=== PATIENT | female | born 1995 | race Caucasian/White ===

== ENCOUNTER → 2023-06-06 | Outpatient (CLI) | payer OTHER, SELFPAY ==
[2023-06-06 11:23] LABS: Absolute Lymphocyte Count 2.46 X10^3/uL (0.83-4.51); Absolute Neutrophil Count 6.6 X10^3/uL (2.0-7.7); Basophil# 0.06 X10^3/uL; Basophil% 0.6 % (0-1); Eosinophil# 0.09 X10^3/uL; Eosinophils% 0.9 % (0-5); Hematocrit 38.1 % (37-47); Hemoglobin 12.4 g/dL (12.0-15.0); Lymphocyte # 2.46 X10^3/ul (0.83-4.51); Lymphocyte % 24.6 % (19-41); Mean Corp Hgb Conc 32.5 g/dL (32-36); Mean Corpuscular Hgb 29.2 pg (27.0-32.0); Mean Corpuscular Volume 89.6 fL (81-99); Mean Platelet Vol. 10.5 fl (6.2-12.0); Monocyte# 0.71 X10^3/uL; Monocyte% 7.1 % (0-10); NRBC Flagged by Analyzer 0 % (0-5); Neutrophil # 6.63 X10^3/uL (2.7-7.7); Neutrophil % 66.5 % (47-70); Platelet Count 300 K/mm3 (150-450); RBC Distribution Width CV 11.9 % (11.6-14.6); RBC Distribution Width SD 38.9 fl (35.1-43.9); Red Blood Count 4.25 M/mm3 (4.2-5.4)
[2023-06-06 11:45] LABS: ALB/GLOB Ratio 0.8 RATIO (0.9-2.4); AST(SGOT) 16 U/L (15-37); Alanine Aminotransfer ALT/SGPT 39 U/L (13-56); Albumin, Serum 3.6 g/dL (3.2-5.0); Alkaline Phosphatase 62 U/L (45-117); Anion Gap 3 (5-15); BUN 8 mg/dL (7-18); BUN/Creat Ratio 12.3 RATIO (10-20); Calcium,Total 9.5 mg/dL (8.5-10.1); Chloride 108 mmol/L (98-107); Creatinine, Serum 0.65 mg/dL (0.55-1.02); EST Glomerular Filtration Rate 114 mL/min (>60); Est Glom Filt Rate - Afr Amer 138 mL/min (>60); Globulin 4.7 g/dL (2.2-4.2); Glucose 83 mg/dL (74-106); Protein, Total 8.3 g/dL (6.4-8.2); Sodium Level 134 mmol/L (136-145)
[2023-06-06 11:51] LABS: Hemoglobin A1c 4.9 % (3.8-5.6)
[2023-06-06 12:42] LABS: HIV - WCH Non-Reactive (Nonreactive); Hepatitis B Surface Antigen Non-Reactive (Nonreactive); Hepatitis C Antibody Non-Reactive (Nonreactive); Rubella IgG Reactive (Nonreactive); Syphilis Antibodies Non-reactive
[2023-06-06 12:45] LABS: Protein, Urine (Random) 18.5 mg/dL (<11.9); Protein:Creat Ratio 66 mg/g CRE (0-200)
[2023-06-08 07:08] LABS: Chlamydia By Nucleic Acid AMP Negative (Negative); Gonococcus By Nucleic Acid AMP Negative (Negative)
== END | disposition home or self-care (01) ==
PROVIDERS: Referring Provider Obstetrics & Gynecology; Visit Provider Obstetrics & Gynecology
DX: Z34.90 Encounter for supervision of normal pregnancy, unspecified, unspecified trimester (principal)
CPT/HCPCS: 36415; 80053; 82570; 83036; 84156; 85025; 86703; 86762; 86780; 86803; 86850; 86900; 86901; 87086; 87340; 87491; 87591

== ENCOUNTER → 2023-06-20 | Outpatient (CLI) | payer OTHER, SELFPAY | END | disposition home or self-care (01) | PROVIDERS: Referring Provider Obstetrics & Gynecology; Visit Provider Obstetrics & Gynecology | DX: R35.0 Frequency of micturition (principal); R30.0 Dysuria | CPT/HCPCS: 87077; 87086; 87088; 87186 ==

== ENCOUNTER → 2023-07-19 | Outpatient (CLI) | payer OTHER, SELFPAY ==
--- NOTE | 2023-07-19 13:00 | US_ITS ---
STUDY: SECOND AND THIRD TRIMESTER OBSTETRICAL ULTRASOUND - LIMITED REASON FOR EXAM: Female, 28 years old pelvic pain-right sided, evaluate ovaries. LMP: 04/11/2023. PRIOR ULTRASOUND: No relevant prior comparison study available TECHNIQUE: Transabdominal and Transvaginal TECHNICAL QUALITY: Adequate. FINDINGS: There is a single intrauterine fetus. The fetus is in a cephalic presentation. There is demonstrated cardiac activity with a heart rate of 53 bpm. There is a normal amniotic fluid volume. The amniotic fluid index (ELLE) is not measured. The placenta is posterior in location and is not low lying. There are Grade 0 placental changes. The cervix measures 4.5 cm cm in length. The right ovary measures 3.4 x 2.4 x 2.4 cm flow was seen in the right ovary. There is a 2.3 cm cyst. The left ovary measures 2.1 x 1.8 x 1 cm and appears unremarkable. IMPRESSION: 1. Single live intrauterine fetus in cephalic presentation. 2. Right ovarian cyst. Electronically Signed: Chase Ladd MD at 13:20 EST , STUDY: SECOND AND THIRD TRIMESTER OBSTETRICAL ULTRASOUND - LIMITED REASON FOR EXAM: Female, 28 years old pelvic pain-right sided, evaluate ovaries. LMP: 04/11/2023. PRIOR ULTRASOUND: No relevant prior comparison study available TECHNIQUE: Transabdominal and Transvaginal TECHNICAL QUALITY: Adequate. FINDINGS: There is a single intrauterine fetus. The fetus is in a cephalic presentation. There is demonstrated cardiac activity with a heart rate of 53 bpm. There is a normal amniotic fluid volume. The amniotic fluid index (ELLE) is not measured. The placenta is posterior in location and is not low lying. There are Grade 0 placental changes. The cervix measures 4.5 cm cm in length. The right ovary measures 3.4 x 2.4 x 2.4 cm flow was seen in the right ovary. There is a 2.3 cm cyst. The left ovary measures 2.1 x 1.8 x 1 cm and appears unremarkable. US/OB Limited (No Biometrics) IMPRESSION: 1. Single live intrauterine fetus in cephalic presentation. 2. Right ovarian cyst. . Electronically Signed: Chase Ladd MD at 13:21 EST ,
== END | disposition home or self-care (01) ==
LOC: OPUS 12:58
PROVIDERS: Referring Provider Obstetrics & Gynecology; Visit Provider Obstetrics & Gynecology
DX: O99.891 Other specified diseases and conditions complicating pregnancy (principal); R10.2 Pelvic and perineal pain; Z3A.12 12 weeks gestation of pregnancy
CPT/HCPCS: 76815; 76817

== ENCOUNTER → 2023-07-23 | Outpatient (CLI) | payer OTHER, SELFPAY | END | disposition home or self-care (01) | LOC: LABSPEC 11:02 | PROVIDERS: Referring Provider Otolaryngology Otolaryngology/Facial Plastic Surgery; Visit Provider Otolaryngology Otolaryngology/Facial Plastic Surgery | DX: J32.8 Other chronic sinusitis (principal) | CPT/HCPCS: 87070; 87077; 87205 ==

== ENCOUNTER → 2023-10-20 | Outpatient (CLI) | payer OTHER, SELFPAY ==
--- NOTE | 2023-10-20 09:12 | EKG12_ITS ---
Test Reason : TACHY Blood Pressure : / mmHG Vent. Rate : 107 BPM Atrial Rate : 107 BPM P-R Int : 130 ms QRS Dur : 076 ms QT Int : 336 ms P-R-T Axes : 050 052 022 degrees QTc Int : 448 ms Sinus tachycardia Otherwise normal ECG Confirmed by Surendra Ortiz ([id number]), book editor JABIER LEONARD ([id number]) on 10/21/2023 2:00:14 PM Referred By: Carolyn Agrawal Confirmed By:Surendra Ortiz
--- OUTSIDE RECORDS SUMMARY | 2023-10-20 11:01 | XMS RPT_ITS | CCD ---
Author Name Unknown Address [facility] [address] [place] [address] Organization [facility] Care Team Providers Care Blending Operator Name Role Phone BRODY JONAS Attending Unavailable NINFA DICKERSON Primary Care Unavailab NINFA Kenny Referring Unavailab BRODY Ventura Referring Unavailable NINFA DICKERSON Primary Care Unavailab PETE Ann Attending Unavailable NINFA DICKERSON Primary Care Unavailab NINFA Kenny Referring Unavailab JAMI Zaldivar Attending Unavailable Results Test Name Value Interpretation Reference Range Facil ity Encounters Encounter Date Encounter Type Care Provider Facility Start: 09-06-2023 End: 09-06-2023 ambulatory NINFA [facility] Start: 09-06-2023 End: 09-06-2023 ambulatory BRODY JONAS [facility] Start: 08-25-2023 End: 08-25-2023 ambulatory BRODY Wei [facility] Payers Date Payer Category Payer Unknown [id number] [id number] 1994 Unknown [id number] [id number] 1994 Unknown [id number] [id number]. [id number] Private Health Insurance [id number] Clinical Note 09-06-2023 Note Date & Type Note Facility 09-06-2023 Note China Conteh is a new patient who's primary care provider is Ninfa Dickerson, here for evaluation of heart. Chief Complaint Patient presents with ECHO echo History of Presenting Problem HPI Thank you for consulting us regarding China Conteh. She is referred to the cardiology clinic at [facility] for evaluation of the heart. I saw this patient in the echocardiogram clinic on 09/06/2023. Patient was referred to the echocardiographic clinic for a echocardiogram since there was a question/suspicion of vascular ring/Double aortic arch. Cardiac ROS Review of Systems See the full note Past Medical History Past Medical History: Diagnosis Date Essential (primary) hypertension Treatment Center Plan of Care Hypertension Obesity Past Surgical History: Procedure Laterality Date SECTION, LOW TRANSVERSE TONSILLECTOMY Medications: Outpatient Encounter Medications as of 09/06/2023 Medication Sig Dispense Refill losartan (COZAAR) 12.5 mg TABS Take by mouth aspirin EC (ECOTRIN LOW STRENGTH) 81 MG EC tablet Take by mouth daily famotidine (PEPCID) 40 MG/4ML injection Infuse intravenously multivitamin (TRINATAL RX) tablet Take by mouth daily No facility-administered encounter medications on file as of 09/06/2023. Allergies: No Known Allergies Family Medical History: Family History Problem Relation Age of Onset Breast Cancer Paternal Grandmother Social History: Social History Socioeconomic History Marital status: Spouse name: None Number of children: None Years of education: None Highest education level: None Tobacco Use Smoking status: Never Smokeless tobacco: Never Substance and Sexual Activity Alcohol use: Never Drug use: Never Physical Exam: Vitals: 09/06/23 0915 BP: 139/72 Growth %ile SmartLinks can only be used for patients less than 20 years old. Weight - Scale: (!) 103.4 kg Facility age limit for growth %maria de jesus is 19 years. Height: 165.1 cm Facility age limit for growth %maria de jesus is 19 years. Physical Exam Patient is here for the echocardiogram. Physical exam was deferred. 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 Atrioventricular and ventriculoarterial concordance seen. Atria: Normal left and right atrial size. There was a patent foramen ovale, with [id number] shunt. Tricuspid valve: Normal tricuspid valve. There was normal Doppler across the tricuspid valve. Mitral valve: Normal mitral valve. There was normal Doppler across the mitral valve. Right ventricle: There was normal size and systolic function. Left ventricle: There was normal size and systolic function. Aortic valve: Normal aortic valve. There was normal Doppler across the aortic valve seen. Pulmonary valve: Normal pulmonary valve. There was normal Doppler across the pulmonary valve seen. Ventricular septum: There was no obvious ventricular septal defect seen. Main pulmonary artery: Normal main pulmonary artery. Pulmonary arteries: Good size branch pulmonary arteries. Pulmonary veins: There were at least 2/4 pulmonary veins seen entering into the left atrium. Systemic venous return: There was normal systemic venous return seen. 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 Merritt and further assessment of the the views showed normal head vessels pattern. Ductal arch: Patent Ductal arch. 3-vessel view: There was normal 3-vessel view. Ductus venosus: There was normal flow pattern seen in the ductus venosus. Umbilical artery and umbilical vein. There was normal pulse Doppler in umbilical artery and umbilical vein. Rhythm: There appeared to be a sinus rhythm. There was no arrhythmia noted. Impression and recommendations. 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 Merritt and further assessment of the the views showed normal head vessels pattern. Normal echocardiogram. 2) I have discussed the limitations of echocardiographic examination, that is likely to miss small ventricular septal defects as well as mild semilunar valve stenosis. Patent foramen ovale and patent ductus arteriosus are normal findings in utero. Coarctation of aorta is difficult to diagnose pre natally in the presence of patent ductus arteriosus. 3) I have also discussed echocardiographic findings in detail including circulation, pathophysiology of Patent foramen ovale and Patent ductus arteriosus, prognosis, medical and surgical treatments, follow up echocardiograms and follow ups. 4) Follow up echocardiogram in 10 Weeks. Counseling and/or coordination of car (more content not included)... [facility] Summary Purpose Family History No Family History Records Found Advance Directives No Advanced Directives Records Found Additional Source Comments INFORMATION SOURCE (unrecogn ized section and content) FOR RECORDS PERTAINING TO PATIENTS WHO ARE OR HAVE BEEN ENROLLED IN A CHEMICAL DEPENDENCY/SUBSTANCEABUSE PROGRAM, SOME INFORMATION MAY BE OMITTED. This clinical summary was aggregated from multiple sources. Caution should be exercised in using it in the provision of clinical care. This summary normalizes information from multiple sources, and as a consequence, information in this document may materially change the coding, format and clinical context of patient data. In addition, data may be omitted in some cases. CLINICAL DECISIONS SHOULD BE BASED ON THE PRIMARY CLINICAL RECORDS. [facility]. provides no warranty or guarantee of the accuracy or completeness of information in this document.
== END | disposition home or self-care (01) ==
LOC: PSN 09:11
PROVIDERS: Referring Provider Obstetrics & Gynecology; Visit Provider Obstetrics & Gynecology
DX: O16.9 Unspecified maternal hypertension, unspecified trimester (principal); O99.891 Other specified diseases and conditions complicating pregnancy; R00.2 Palpitations; R00.0 Tachycardia, unspecified; Z3A.00 Weeks of gestation of pregnancy not specified
CPT/HCPCS: 93005

== ENCOUNTER → 2023-10-27 | Outpatient (CLI) | payer OTHER, SELFPAY ==
[2023-10-27 10:47] LABS: Absolute Lymphocyte Count 1.38 X10^3/uL (0.83-4.51); Absolute Neutrophil Count 6.9 X10^3/uL (2.0-7.7); Basophil# 0.03 X10^3/uL; Basophil% 0.3 % (0-1); Eosinophil# 0.06 X10^3/uL; Eosinophils% 0.7 % (0-5); Hematocrit 31.8 % (37-47); Hemoglobin 10.6 g/dL (12.0-15.0); Lymphocyte # 1.38 X10^3/ul (0.83-4.51); Lymphocyte % 15.4 % (19-41); Mean Corp Hgb Conc 33.3 g/dL (32-36); Mean Corpuscular Hgb 28.9 pg (27.0-32.0); Mean Corpuscular Volume 86.6 fL (81-99); Mean Platelet Vol. 10.8 fl (6.2-12.0); Monocyte# 0.51 X10^3/uL; Monocyte% 5.7 % (0-10); NRBC Flagged by Analyzer 0 % (0-5); Neutrophil # 6.89 X10^3/uL (2.7-7.7); Platelet Count 214 K/mm3 (150-450); RBC Distribution Width CV 13.1 % (11.6-14.6); RBC Distribution Width SD 41.1 fl (35.1-43.9); Red Blood Count 3.67 M/mm3 (4.2-5.4)
[2023-10-27 10:54] LABS: Glucose Challenge Gest 1H 50g 141 mg/dL (70-140)
[2023-10-27 11:45] LABS: HIV - WCH Non-Reactive (Nonreactive); Syphilis Antibodies Non-reactive
== END | disposition home or self-care (01) ==
LOC: PAVLAB 09:57
PROVIDERS: Referring Provider Obstetrics & Gynecology; Visit Provider Obstetrics & Gynecology
DX: Z34.92 Encounter for supervision of normal pregnancy, unspecified, second trimester (principal)
CPT/HCPCS: 36415; 82950; 85025; 86703; 86780

== ENCOUNTER → 2023-10-31 | Outpatient (CLI) | payer OTHER, SELFPAY ==
--- NOTE | 2023-10-31 09:35 | ECHOD_ITS ---
Reason For Study: SOB Procedure This was a 2D Doppler, Color Flow transthoracic echocardiogram. The study was technically difficult. Definity deferred due to . Exam performed in department. Left Ventricle Normal LV size. Left ventricular systolic function is normal. The estimated ejection fraction is 60 %. Normal diastology for age. No regional wall motion abnormalities noted. Right Ventricle Normal RV size. Normal systolic function. Atria The left atrium is mildly enlarged. Normal right atrium. Mitral Valve Normal mitral valve. Tricuspid Valve Normal tricuspid valve. Aortic Valve Trisinus/trileaflet aortic valve. Pulmonic Valve Normal pulmonic valve. Great Vessels Normal aortic root. The pulmonary artery is normal size. Inferior vena cava collapse with respiration. Pericardium/Pleural No pericardial effusion. MMode/2D Measurements & Calculations LVIDd: 4.4 cm IVSd: 1.0 cm Ao root diam: 2.6 cm LVIDs: 3.5 cm LVPWd: 1.2 cm FS: 21.4 % LAV(MOD-bp): 72.9 ml LA A4 area: 22.9 cm2 LA dimension(2D): 4.3 cm LAV(MOD-bp) Indexed: 34.7 ml/m2 LAV(MOD-sp2): 65.4 ml LAV(MOD-sp4): 69.9 ml TAPSE: 2.3 cm RA A4 area: 12.0 cm2 Time Measurements MV dec time: 0.20 sec Doppler Measurements & Calculations MV E max earl: 80.7 cm/sec Lat Peak E' Earl: 17.6 cm/sec Med Peak E' Earl: 9.8 cm/sec MV A max earl: 62.9 cm/sec E/E' lat: 4.6 E/E' med: 8.3 MV E/A: 1.3 MV V2 max: 104.4 cm/sec MV dec slope: 415.0 cm/sec2 Ao V2 max: 157.3 cm/sec MV max P.4 mmHg Ao max P.9 mmHg MV V2 mean: 71.9 cm/sec Ao V2 mean: 110.6 cm/sec MV mean P.3 mmHg Ao mean P.5 mmHg MV V2 VTI: 26.0 cm Ao V2 VTI: 29.4 cm PA V2 max: 85.8 cm/sec PA V2 mean: 64.2 cm/sec ECHO/Echo Complete Interpretation Summary Normal LV size. Left ventricular systolic function is normal. The estimated ejection fraction is 60 %. Structurally normal valves. Ordering Physician: Luis Alfredo Moreno Referring Physician: Luis Alfredo Moreno Performed By: Rosi Matos RCS
== END | disposition home or self-care (01) ==
LOC: CVS 09:34
PROVIDERS: Referring Provider Internal Medicine Cardiovascular Disease; Visit Provider Internal Medicine Cardiovascular Disease
DX: R06.02 Shortness of breath (principal)
CPT/HCPCS: 93306

== ENCOUNTER → 2023-11-03 | Outpatient (CLI) | payer OTHER, SELFPAY ==
[2023-11-03 08:00] LABS: Glucose GTT-Gestation. Fasting 107 mg/dL (<105)
[2023-11-03 09:27] LABS: Glucose GTT-Gestational 1 Hr 202 mg/dL (<190)
[2023-11-03 10:43] LABS: Glucose GTT-Gestational 2 Hr 144 mg/dL (<165)
[2023-11-03 11:23] LABS: Glucose GTT-Gestational 3 Hr 58 L (<145)
== END | disposition home or self-care (01) ==
LOC: LAB 06:54
PROVIDERS: Referring Provider Obstetrics & Gynecology; Visit Provider Obstetrics & Gynecology
DX: Z13.1 Encounter for screening for diabetes mellitus (principal)
CPT/HCPCS: 36415; 82951; 82952

== ENCOUNTER → 2023-11-17 | Outpatient (CLI) | payer OTHER, SELFPAY | END | disposition home or self-care (01) | PROVIDERS: Visit Provider Obstetrics & Gynecology | DX: O23.40 Unspecified infection of urinary tract in pregnancy, unspecified trimester (principal); Z3A.00 Weeks of gestation of pregnancy not specified | CPT/HCPCS: 87086 ==

== ENCOUNTER → 2023-11-22 | Outpatient (CLI) | payer OTHER, SELFPAY ==
--- NOTE | 2023-11-22 16:17 | US_ITS ---
STUDY: Ultrasound OB Biophysical Profile REASON FOR EXAM: Female, 28 years old wellbeing -- Needs done today. TECHNIQUE: Transabdominal PRIOR ULTRASOUND: None. FINDINGS: There is a single intrauterine fetus. The fetus is in a cephalic presentation. There is demonstrated cardiac activity with a heart rate of 148 bpm. There is a normal amniotic fluid volume. The largest amniotic fluid pocket measures 5.5 cm. The amniotic fluid index (ELLE) is 14.3 cm. The placenta is posterior and not low-lying. There are Grade 1 placental changes. BIOPHYSICAL PROFILE (BPP): 03/15 -- Breathin/2. -- Movement: 2/2. -- Tone: 2/2. --ELLE: 2/2. US/Biophysical Prof W/O Non Stres IMPRESSION: Normal BPP. Electronically Signed: Jacob Valiente MD at 17:49 EDT ,
== END | disposition home or self-care (01) ==
LOC: US 16:17
PROVIDERS: Referring Provider Obstetrics & Gynecology; Visit Provider Obstetrics & Gynecology
DX: O24.419 Gestational diabetes mellitus in pregnancy, unspecified control (principal); Z3A.00 Weeks of gestation of pregnancy not specified
CPT/HCPCS: 76819

== ENCOUNTER 2023-11-23 12:00 | Outpatient (RCR) | payer OTHER, SELFPAY | END 2023-12-06 23:59 | LOC: DC 12:00 | PROVIDERS: Referring Provider Nurse Practitioner Women's Health; Visit Provider Nurse Practitioner Women's Health | DX: O24.419 Gestational diabetes mellitus in pregnancy, unspecified control (principal); Z71.3 Dietary counseling and surveillance | CPT/HCPCS: 97802 ==

== ENCOUNTER → 2023-12-02 | Outpatient (CLI) | payer OTHER, SELFPAY ==
[2023-12-02 15:24] LABS: Absolute Neutrophil Count 6.8 X10^3/uL (2.0-7.7); Basophil# 0.03 X10^3/uL; Basophil% 0.3 % (0-1); Eosinophil# 0.11 X10^3/uL; Eosinophils% 1.2 % (0-5); Hemoglobin 10.4 g/dL (12.0-15.0); Mean Corp Hgb Conc 32.5 g/dL (32-36); Mean Corpuscular Hgb 28.7 pg (27.0-32.0); Mean Corpuscular Volume 88.2 fL (81-99); Mean Platelet Vol. 11.1 fl (6.2-12.0); Monocyte# 0.57 X10^3/uL; NRBC Flagged by Analyzer 0 % (0-5); Neutrophil # 6.82 X10^3/uL (2.7-7.7); Neutrophil % 71.7 % (47-70); Platelet Count 227 K/mm3 (150-450); RBC Distribution Width CV 13.5 % (11.6-14.6); RBC Distribution Width SD 43.8 fl (35.1-43.9); Red Blood Count 3.63 M/mm3 (4.2-5.4); White Blood Count 9.5 K/mm3 (4.4-11.0)
[2023-12-02 15:34] LABS: Protein, Urine (Random) 18.7 mg/dL (<11.9); Protein:Creat Ratio 170 mg/g CRE (0-200)
[2023-12-02 15:48] LABS: ALB/GLOB Ratio 0.6 RATIO (0.9-2.4); AST(SGOT) 16 U/L (15-37); Alanine Aminotransfer ALT/SGPT 16 U/L (13-56); Albumin, Serum 2.5 g/dL (3.2-5.0); Alkaline Phosphatase 84 U/L (45-117); Anion Gap 6 (5-15); BUN 8 mg/dL (7-18); BUN/Creat Ratio 13.4 RATIO (10-20); Chloride 108 mmol/L (98-107); EST Glomerular Filtration Rate 126 mL/min (>60); Est Glom Filt Rate - Afr Amer 152 mL/min (>60); Globulin 4.3 g/dL (2.2-4.2); Glucose 104 mg/dL (74-106); Protein, Total 6.8 g/dL (6.4-8.2); Sodium Level 138 mmol/L (136-145)
== END | disposition home or self-care (01) ==
LOC: LAB 14:36
PROVIDERS: Referring Provider Obstetrics & Gynecology; Visit Provider Obstetrics & Gynecology
DX: O24.419 Gestational diabetes mellitus in pregnancy, unspecified control (principal); O16.9 Unspecified maternal hypertension, unspecified trimester; Z3A.00 Weeks of gestation of pregnancy not specified
CPT/HCPCS: 36415; 80053; 82570; 84156; 85025

== ENCOUNTER → 2023-12-07 | Outpatient (CLI) | payer OTHER, SELFPAY ==
--- NOTE | 2023-12-07 15:14 | US_ITS ---
INDICATION: GDM HTN in - GROWTH EXAMINATION: Ultrasound US OB Limited 1 Or More Fetus TECHNIQUE: transabdominal pelvic ultrasound was performed. Grayscale, spectral waveform, and color flow Doppler evaluation of the adnexa. COMPARISON: 07/19/2023 with 01/16/2024 LMP: 04/11/2023 Beta-hCG: Unknown. Provided EGA: 34 weeks 2 days FINDINGS: INTRAUTERINE GESTATION(s): Single. ESTIMATED GESTATIONAL AGE: 34 weeks 4 days ESTIMATED DUE DATE (JEREMY): 01/14/2024 HEART MOTION is 155 bpm. AMNIOTIC FLUID INDEX (ELLE): 16.8 cm ESTIMATED WEIGHT: 2194 g or 4 lbs. 13 oz. Percentile 22nd%. BIOPHYSICAL PROFILE (BPP): Not assessed. PRESENTATION: Cephalic PLACENTA: Posterior. There is no placenta previa or abruption. CERVIX: The cervix is not visualized. US/OB Limited With Biometrics IMPRESSION: Single live intrauterine of 34 weeks 4 days. Electronically Signed: Mick Jean Baptiste MD at 21:30 EDT ,
--- NOTE | 2023-12-07 15:14 | US_ITS ---
STUDY: OBSTETRICAL ULTRASOUND - BIOPHYSICAL PROFILE REASON FOR EXAM: Female, 28 years old GDM HTN in LMP: April 11, 2023. PRIOR ULTRASOUND: Comparison is made with prior study dated November 22, 2023. TECHNIQUE: Transabdominal TECHNICAL QUALITY: Adequate. FINDINGS: There is a single intrauterine fetus. The fetus is in a cephalic presentation. There is demonstrated cardiac activity with a heart rate of 155 bpm. There is a normal amniotic fluid volume. The largest amniotic fluid pocket measures 4.6 cm x 2.6 cm. The amniotic fluid index (ELLE) is 16.9 cm. The placenta is posterior in location and is not low lying. There are Grade 1 placental changes. Age by LMP: 34 weeks, 2 days. JEREMY by LMP: January 16, 2024. BIOPHYSICAL PROFILE: Breathing Movements (FBM): 2 Gross Body Movements (GBM): 2 Tone (FT): 2 Amniotic Fluid Volume (AFV): 2 TOTAL SCORE: US/Biophysical Prof W/O Non Stres IMPRESSION: Normal biophysical profile of 03/15. Electronically Signed: Ortiz Caballero MD at 8:02 EDT ,
== END | disposition home or self-care (01) ==
PROVIDERS: Referring Provider Obstetrics & Gynecology; Visit Provider Obstetrics & Gynecology
DX: O24.419 Gestational diabetes mellitus in pregnancy, unspecified control (principal); O16.9 Unspecified maternal hypertension, unspecified trimester; Z3A.00 Weeks of gestation of pregnancy not specified
CPT/HCPCS: 76816; 76819

== ENCOUNTER → 2023-12-12 | Outpatient (CLI) | payer OTHER, SELFPAY ==
--- NOTE | 2023-12-12 17:01 | US_ITS ---
STUDY: OBSTETRICAL ULTRASOUND - BIOPHYSICAL PROFILE REASON FOR EXAM: Female, 28 years old GDM HTN in LMP: April 11, 2023. PRIOR ULTRASOUND: Comparison is made with prior examination of December 07, 2023. TECHNIQUE: Transabdominal TECHNICAL QUALITY: Adequate. FINDINGS: There is a single intrauterine fetus. The fetus is in a cephalic presentation. There is demonstrated cardiac activity with a heart rate of 131 bpm. There is a normal amniotic fluid volume. The largest amniotic fluid pocket measures 5.4 cm. The amniotic fluid index (ELLE) is 12 cm. The placenta is posterior in location and is not low lying. There are Grade 1 placental changes. Age by LMP: 35 weeks, 0 days. JEREMY by LMP: January 16, 2024. BIOPHYSICAL PROFILE: Breathing Movements (FBM): 2 Gross Body Movements (GBM): 2 Tone (FT): 2 Amniotic Fluid Volume (AFV): 2 TOTAL SCORE: US/Biophysical Prof W/O Non Stres IMPRESSION: Normal biophysical profile of 03/15. Electronically Signed: Ortiz Caballero MD at 15:19 EDT ,
== END | disposition home or self-care (01) ==
LOC: US 16:59
PROVIDERS: Referring Provider Obstetrics & Gynecology; Visit Provider Obstetrics & Gynecology
DX: O24.419 Gestational diabetes mellitus in pregnancy, unspecified control (principal); O16.9 Unspecified maternal hypertension, unspecified trimester; Z3A.00 Weeks of gestation of pregnancy not specified; Z79.899 Other long term (current) drug therapy
CPT/HCPCS: 76819

== ENCOUNTER → 2023-12-19 | Outpatient (CLI) | payer OTHER, SELFPAY ==
--- NOTE | 2023-12-19 07:30 | US_ITS ---
INDICATION: GDM HYPERTENSION in EXAMINATION: Ultrasound US Biophysical Profile W/O Nonst TECHNIQUE: Transabdominal pelvic ultrasound was performed. COMPARISON: December 12, 2023 . FINDINGS: INTRAUTERINE GESTATION(s): Single. HEART MOTION is 143 bpm. AMNIOTIC FLUID INDEX (ELLE): 16.63 cm BIOPHYSICAL PROFILE (BPP): 03/15 -- Breathin/2. -- Movement: 2/2. -- Tone: 2/2. --ELLE: 2/2. PRESENTATION: Cephalic PLACENTA: Posterior. US/Biophysical Prof W/O Non Stres IMPRESSION: Single live intrauterine with a biophysical profile of 03/15. Electronically Signed: Michelle Whelan MD at 8:28 EDT ,
== END | disposition home or self-care (01) ==
LOC: US 07:30
PROVIDERS: Referring Provider Obstetrics & Gynecology; Visit Provider Obstetrics & Gynecology
DX: O24.419 Gestational diabetes mellitus in pregnancy, unspecified control (principal); O16.9 Unspecified maternal hypertension, unspecified trimester; Z3A.00 Weeks of gestation of pregnancy not specified
CPT/HCPCS: 76819

== ENCOUNTER 2023-12-22 16:17 | Outpatient (CLI) | payer OTHER, SELFPAY ==
--- NOTE | 2023-12-22 16:36 | US_ITS ---
STUDY: OBSTETRICAL ULTRASOUND - BIOPHYSICAL PROFILE REASON FOR EXAM: Female, 28 years old FHR variables LMP: PRIOR ULTRASOUND: None. TECHNIQUE: Transabdominal TECHNICAL QUALITY: Adequate. FINDINGS: There is a single intrauterine fetus. The fetus is in a cephalic presentation. There is demonstrated cardiac activity with a heart rate of 145 bpm. There is a normal amniotic fluid volume. The largest amniotic fluid pocket measures 3.2 cm. The amniotic fluid index (ELLE) is 11 cm. The placenta is posterior and not low-lying There are Grade 1 placental changes. Age by LMP: 36 weeks, 3 days. JEREMY by LMP: January 16, 2024. BIOPHYSICAL PROFILE: Breathing Movements (FBM): 0 Gross Body Movements (GBM): 2 Tone (FT): 2 Amniotic Fluid Volume (AFV): 2 TOTAL SCORE: 6 / 8 US/Biophysical Prof W/O Non Stres IMPRESSION: Abnormal biophysical profile of 6/8. Electronically Signed: Wil Leger MD at 21:27 EDT Reading Location ID and State: [facility] / [place] Tel , Service support ,
[2023-12-22 16:37] VITALS: BMI 39.2
[2023-12-22 16:42] VITALS: BP 139/83; PULSE 94; RESP 17; TEMP 36.5
[2023-12-22 20:04] VITALS: BP 143/75; PULSE 83; RESP 20; TEMP 37.2; O2SAT 98
--- NOTE | 2023-12-22 21:08 | OB.TRI.PN_ITS ---
Progress Notes Date of Service: 12/22/23 Progress Note: Patient presents for triage evaluation secondary to variables in the office FHT: 140 Moderate variability reactive isolated mild variable decelerations overall category I tracing [place]: irregular Contractions Assessment and plan: variable decelerations 8/10 BPP Reactive NST, reassuring maternal and status patient discharged to home to follow-up as scheduled. See problem list details for additional plan information. Charges/Coding Procedures Urinary/Genital [id number]: [id number] non-stress test Interp
== END 2023-12-22 20:13 | disposition home or self-care (01) ==
LOC: WPOUT 16:31 → WP 16:32
PROVIDERS: Referring Provider Obstetrics & Gynecology; Visit Provider Obstetrics & Gynecology
DX: O36.8390 Maternal care for abnormalities of the fetal heart rate or rhythm, unspecified trimester, not applicable or unspecified (principal); Z3A.00 Weeks of gestation of pregnancy not specified
CPT/HCPCS: 59025; 59050; 76819; 87081; 99221; G0378

== ENCOUNTER → 2023-12-26 | Outpatient (CLI) | payer OTHER, SELFPAY ==
--- NOTE | 2023-12-26 07:18 | US_ITS ---
STUDY: OBSTETRICAL ULTRASOUND - BIOPHYSICAL PROFILE REASON FOR EXAM: Female, 28 years old. well-being. LMP: Unknown. PRIOR ULTRASOUND: 12/22/2023. TECHNIQUE: Transabdominal ultrasound evaluation was performed. FINDINGS: There is a single intrauterine fetus. The fetus is in a cephalic presentation. There is demonstrated cardiac activity with a heart rate of 150 bpm. There is a normal amniotic fluid volume. The amniotic fluid index (ELLE) is 6.7 cm. The placenta is posterior in location and is not low lying. BIOPHYSICAL PROFILE: Breathing Movements (FBM): 2 Gross Body Movements (GBM): 2 Tone (FT): 2 Amniotic Fluid Volume (AFV): 2 TOTAL SCORE: US/Biophysical Prof W/O Non Stres IMPRESSION: Normal biophysical profile of 03/15. Electronically Signed: Gamal Maddox MD at 14:49 EDT ,
== END | disposition home or self-care (01) ==
LOC: US 07:17
PROVIDERS: Referring Provider Obstetrics & Gynecology; Visit Provider Obstetrics & Gynecology
DX: O24.419 Gestational diabetes mellitus in pregnancy, unspecified control (principal); O16.9 Unspecified maternal hypertension, unspecified trimester; Z3A.00 Weeks of gestation of pregnancy not specified
CPT/HCPCS: 76819

== ENCOUNTER 2023-12-29 10:20 | Outpatient (CLI) | payer OTHER, SELFPAY ==
--- NOTE | 2023-12-29 10:27 | US_ITS ---
STUDY: OBSTETRICAL ULTRASOUND - BIOPHYSICAL PROFILE REASON FOR EXAM: Female, 28 years old abnormal nonstress test LMP: 04/21/2023 PRIOR ULTRASOUND: 12/26/2023 TECHNIQUE: Transabdominal TECHNICAL QUALITY: Adequate. FINDINGS: There is a single intrauterine fetus. The fetus is in a cephalic presentation. There is demonstrated cardiac activity with a heart rate of 147 bpm. There is a normal amniotic fluid volume. The largest amniotic fluid pocket measures 2.1 cm. The amniotic fluid index (ELLE) is 7.5 cm. The placenta is posterior in location and is not low lying. There are Grade 1 placental changes. BIOPHYSICAL PROFILE: Breathing Movements (FBM): 0 Gross Body Movements (GBM): 2 Tone (FT): 2 Amniotic Fluid Volume (AFV): 2 TOTAL SCORE: 6 / 8 US/Biophysical Prof W/O Non Stres IMPRESSION: biophysical profile of 01/13. Electronically Signed: Aníbal Rapp MD at 14:42 EDT ,
[2023-12-29 10:45] VITALS: BP 131/73; PULSE 93; RESP 16; TEMP 36.8
--- NOTE | 2023-12-29 12:38 | NURSING ---
called in for results of BPP from RN. Ultrasound said 01/13-2 off for breathing, reactive NST, and RN called for results of ELLE-7.5 with deepest pocket-2.1. stated pt may be d/c to home but pt needs to return to the hospital if any decreased movement noted over the weekend until scheduled for Tuesday.
[2023-12-29 12:54] VITALS: BMI 38.8
--- NOTE | 2023-12-29 17:59 | OB.TRI.PN ---
Progress Notes Date of Service: 12/29/23 Progress Note: seen for bpp and exteneded monitoing 03/17 bpp reasurring dc home 7 cm neyda
== END 2023-12-29 12:45 | disposition home or self-care (01) ==
LOC: WPOUT 10:24 → WP 10:25
PROVIDERS: Referring Provider Obstetrics & Gynecology; Visit Provider Obstetrics & Gynecology
DX: O16.3 Unspecified maternal hypertension, third trimester (principal); O24.419 Gestational diabetes mellitus in pregnancy, unspecified control; Z79.82 Long term (current) use of aspirin; Z79.899 Other long term (current) drug therapy; Z3A.37 37 weeks gestation of pregnancy
CPT/HCPCS: 59025; 59050; 76819; 99221; G0378

== ENCOUNTER 2024-01-03 05:05 | Inpatient (IN) | payer OTHER, SELFPAY ==
[2024-01-03] VITALS (19 sets, daily range): BP systolic 101–141; BP diastolic 57–89; PULSE 71–101; RESP 14–20; TEMP 36.1–37.1; O2SAT 97–99; BMI 38.7
[2024-01-03] MEDS: Lactated Ringers 1,000 ML 999 ML IV (05:20)
[2024-01-03 05:47] LABS: Bedside Glucose 119 mg/dL (74-106)
[2024-01-03 05:55] LABS: Basophil# 0.05 X10^3/uL; Basophil% 0.5 % (0-1); Eosinophil# 0.16 X10^3/uL; Eosinophils% 1.5 % (0-5); Hematocrit 33.6 % (37-47); Hemoglobin 10.9 g/dL (12.0-15.0); Lymphocyte % 25.7 % (19-41); Mean Corp Hgb Conc 32.4 g/dL (32-36); Mean Corpuscular Hgb 28.1 pg (27.0-32.0); Mean Corpuscular Volume 86.6 fL (81-99); Mean Platelet Vol. 11.4 fl (6.2-12.0); Monocyte# 0.73 X10^3/uL; Monocyte% 6.7 % (0-10); NRBC Flagged by Analyzer 0 % (0-5); Neutrophil # 7.03 X10^3/uL (2.7-7.7); Neutrophil % 64.5 % (47-70); Platelet Count 231 K/mm3 (150-450); RBC Distribution Width CV 13.7 % (11.6-14.6); RBC Distribution Width SD 42.6 fl (35.1-43.9); Red Blood Count 3.88 M/mm3 (4.2-5.4); White Blood Count 10.9 K/mm3 (4.4-11.0)
[2024-01-03] MEDS: Lactated Ringers 1,000 ML 150 ML IV (06:20)
[2024-01-03] MEDS: Acetaminophen 500 MG Tablet 1000 MG PO ×3 (06:32→17:17)
[2024-01-03] MEDS: Sodium Citrate/Citric Acid 30 ML UDC PO (06:55)
[2024-01-03] MEDS: Cefazolin 2 GM in 0.9% Normal Saline (100mL Bag) 100 ML IV (06:59)
[2024-01-03] MEDS: Oxytocin 15 Units/NS 250ml 15 UNITS/250 ML IV.SOLN 83 UNITS IV (08:30)
--- NOTE | 2024-01-03 08:36 | HP.PCM.OB_ITS ---
HPI - General General Date of Admission: 01/03/24 HPI Narrative CHINA GARNER, is a 28 F who presents for RLTCS history of GDM and chtn Maternal Data Information JEREMY Calculator Estimated Delivery Date Method Current WG Current Estimate 01/16/24 LMP (Certain) 38w 2d Other Estimates 01/14/24 Ultrasound #1 38w 4d PFSH PFSH Medical History (Updated 01/04/24 @ 05:[address] Carolyn Agrawal MD) depression Pre-eclampsia Chronic hypertension Shortness of breath Tachycardia UTI in Tobacco dependence in remission Anesthesia complication- History of depression Hx of pre-eclampsia in prior , currently Hx of gestational diabetes in prior , currently Home Medications ?Medication ?Instructions ?Recorded ?Last Taken ?Type famotidine 20 mg tablet (Pepcid) 20 mg PO DAILY gerd 05/31/23 01/02/24 21:00 History multivit-min no.71-iron fum 28 1 cap PO DAILY PRN 05/31/23 01/02/24 09:00 History mg-folate no.1 1 mg-dha 300 mg capsule (PNV-[place]) aspirin 81 mg tablet,delayed 81 mg PO DAILY 07/08/23 12/30/23 History release (Adult Low Dose Aspirin) labetalol 100 mg tablet 100 mg PO BID blood pressure 90 07/08/23 01/02/24 21:00 Rx days #180 tabs ondansetron HCl 4 mg tablet 4 mg PO Q8H nausea #30 tabs 07/08/23 12/25/23 Rx blood sugar diagnostic (Blood #120 ea 11/03/23 Unknown Rx Glucose Test strips) blood-glucose meter #1 ea 11/03/23 Unknown Rx lancets #200 ea 11/03/23 Unknown Rx insulin NPH isoph U-100 human 100 18 unit subcut QHS diabetes 12/22/23 01/01/24 21:00 History unit/mL (3 mL) subcutaneous pen (Humulin N NPH U-100 Insulin KwikPen) naproxen 500 mg tablet 500 mg PO BID PRN PRN Pain #30 tabs 01/04/24 Unknown Rx oxycodone-acetaminophen 5 mg-325 1 tab PO Q6H PRN pain 7 days #20 01/04/24 Unknown Rx mg tablet (Percocet) tabs Allergy/AdvReac Type Severity Reaction Status Date / Time No Known Allergies Allergy Verified 01/03/24 05:17 Family History Grandmother Breast cancer, Onset Age: 57 Paternal Grandfather Heart disease CHF Mother SVT (supraventricular tachycardia) Surgical History (Updated 01/04/24 @ 05:[address] Carolyn Agrawal MD) History of surgery History of tonsillectomy Hx of section Social History adopted: No household members: spouse and children number of children: 2 current occupational status: employed current occupation: RN current occupational exposures/hazards: No pets and animals: No history of recent travel: No sexually active: Yes Smoking Status: Former smoker how long ago did patient quit smokin alcohol intake: never substance use type: does not use well-balanced diet: rarely or never caffeine: Yes Type: carbonated beverages Number of servings: 2 and coffee Number of servings: 2 eating out: 1-3 times/week during the past year weight has: increased > 10 lbs what type of physical activity do you participate in: none jory/jehovah's witness: Islam seatbelt use: always do you feel safe at home: Yes 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 Date Name GA/Weeks Outcome Route Bth Weight Infant Gen Labor Lgth Anesthesia [facility] Provider FOB 05/25/20 Donavan 37 live - full term 6#7oz Fema le 48 hrs spinal [place] Mandy 06/30/21 César 37 live - full term 7#4oz Male 48 HRs spinal [place] Islam Delivery Date: 05/25/20 Last Updated by: France Newton IOL, csection failure to progress Delivery Date: 06/30/21 Last Updated by: France Newton IOL, c section failure to progress Visit Details Expected Delivery Route/Plan plan rpt cs at 38 weeks chance of success is only 20% labor failed x 2, she is obese and has chronic htn. not a good candidate for IOL for if not in active labor upon arrival Plans Covid status: declined Flu vaccine: given Tdap vaccine: given Rhogam: na LARC form signed:yes Problem list reviewed and updated with the most current plan of care details and appropriate orders placed. Relevant counseling for the gestational age provided. Continue routine care and follow up unless otherwise noted in visit notes/problem list details OB Flowsheet Initial Weight: Not Recorded Date -?-?-?-?-?-?-?-?-?-?-?-?- EGA Weight BP Urine Prot -?-?-?-?-?-?-?-?-?-?-?-?- Glucose FHR FuHt Pres Dilation -?-?-?-?-?-?-?-?-?-?-?-?- Effaced St Visit Note 06/06/23 -?-?-?-?-?-?-?-?-?-?-?-?- 8w 0d 231 lb 8 oz 133/92 -?-?-?-?-?-?-?-?-?-?-?-?- 163 -?-?-?-?-?-?-?-?-?-?-?-?- JV- crl consiste nt with LMP. pt wants to discuss success. based on her history her chance of success is only 21% she is on labetalol. NIPT declined. 07/08/23 -?-?-?-?-?-?-?-?-?-?-?-?- 12w 4d 233 lb 2 oz 115/74 Nega tive -?-?-?-?-?-?-?-?-?-?-?-?- Negative 165 -?-?-?-?-?-?-?-?-?-?-?-?- JV- pt complains of headache and blurry vision secondary to recurrent sinus infection. She saw ent in her home town before she moved. Will re-consult. labetalol refilled, zofran and augmentin ordered. she complains of pain on her right side. will order a formal scan. no fevers, chills, nausea, vomiting, or diarrhea. 08/03/23 -?-?-?-?-?-?-?-?-?-?-?-?- 16w 2d 230 lb 120/68 Negative -?-?-?-?-?-?-?-?-?-?-?-?- Negative 161 -?-?-?-?-?-?-?-?-?-?-?-?- MH-No VB or cram ping. Feeling some flutters. Saw ENT:allergy testing done. [facility] 08/25/22 08/29/23 -?-?-?-?-?-?-?-?-?-?-?-?- 20w 0d 229 lb 4 oz 120/77 Nega tive -?-?-?-?-?-?-?-?-?-?-?-?- Negative 155 -?-?-?-?-?-?-?-?-?-?-?-?- LC- no vb/crampi ng. anatomy with cardiac anomaly- following up with pedi cards echo in 2weeks. obtaining genetics counseling via [facility] [place]. 09/26/23 -?-?-?-?-?-?-?-?-?-?-?-?- 24w 0d 229 lb 126/84 Negative -?-?-?-?-?-?-?-?-?-?-?-?- Negative 150 -?-?-?-?-?-?-?-?-?-?-?-?- SM- no vb lof go od fm no regular ctx, having palpitations and tachycardia - reviewed precautions 10/27/23 -?-?-?-?-?-?-?-?-?-?-?-?- 28w 3d 231 lb 116/74 -?-?-?-?-?-?-?-?-?-?-?-?- 150 29 -?-?-?-?-?-?-?-?-?-?-?-?- Sm- no vb lof go od fm no regualr ctx 11/09/23 -?-?-?-?-?-?-?-?-?-?-?-?- 30w 2d 236 lb 130/78 Negative -?-?-?-?-?-?-?-?-?-?-?-?- Negative 145 31 -?-?-?-?-?-?-?-?-?-?-?-?- MH-NO VB, LOF. G ood FM. Just start checking BS reading. Forgot to bring. States all fasting >100. Has not met dietitian. Arrange that this week, see SM 1 week. Discussed possible addition of insulin then. 11/17/23 -?-?-?-?-?-?-?-?-?-?-?-?- 31w 3d 232 lb 114/76 -?-?-?-?-?-?-?-?-?-?-?-?- 140 32 -?-?-?-?-?-?-?-?-?-?-?-?- SM- bs elevated, just saw subject scientific research and she stated she is fairly on track nutrition rebolledo, reocmmend starting nph at itme for elevated fastings. close follow up planned. reviewed tachycardia symptoms, encouraged fu with cardio. would agree with being off if desired. SM- bs elevated, just saw nu tritionist and she stated she is fairly on track nutrition rebolledo, reocmmend starting nph at itme for elevated fastings. close follow up planned. reviewed tachycardia symptoms, encouraged fu with cardio. would agree with being off work if desired. 11/25/23 -?-?-?-?-?-?-?-?-?-?-?-?- 32w 4d 120/75 Trace -?-?-?-?-?-?-?-?-?-?-?-?- Negative 150 33 -?-?-?-?-?-?-?-?-?-?-?-?- LC- no vb/ctx/lo f. reactive NST, had x2 variables- cw SM. ELLE 15 on tuesday with active fetus.kick counts encouraged. BS overall stable, now on 12u. fastings improving. most PP under 120 when following diet. LC- no vb/ctx/lof. reactive NST, had x2 variables- cw SM. ELLE 15 on tuesday with active fetus.kick counts encouraged. BS overall stable, now on 12u. fastings improving. most PP under 120 when following diet. has repeat echo next week. 11/28/23 -?-?-?-?-?-?-?-?-?-?-?-?- 33w 0d 237 lb 138/80 Trace -?-?-?-?-?-?-?-?-?-?-?-?- Negative 150 -?-?-?-?-?-?-?-?-?-?-?-?- MH-NST only reac tive. FBS still most over 100. Increase insulin from 12U to 14U QHS. SM aware 12/02/23 -?-?-?-?-?-?-?-?-?-?-?-?- 33w 4d 238 lb -?-?-?-?-?-?-?-?-?-?-?-?- 120 -?-?-?-?-?-?-?-?-?-?-?-?- JV- reactive nst . increasing nph to 16 units for some abnormal fastings. echo was normal, needs to follow up with them when baby is 1-2 months of age. 12/05/23 -?-?-?-?-?-?-?-?-?-?-?-?- 34w 0d 237 lb 8 oz 107/71 Nega tive -?-?-?-?-?-?-?-?-?-?-?-?- Negative 140 -?-?-?-?-?-?-?-?-?-?-?--?- SM- no vb lof go od fm no regular ctx BS controlled 12/15/23 -?-?-?-?-?-?-?-?-?-?-?-?- 35w 3d 237 lb 8 oz 120/77 Nega tive -?-?-?-?-?-?-?-?-?-?-?-?- Negative 140 -?-?-?-?-?-?-?-?-?-?-?-?- KW- NST only. Re active. started with sinus infection last week and noted slight increase in a few fastings. To watch over the weekend and call in Tuesday if continues to be slightly elevated for NPH increase. 12/22/23 -?-?-?-?-?-?-?-?-?-?-?-?- 36w 3d 236 lb 149/79 -?-?-?-?-?-?-?-?-?-?-?--?- 150 0 -?-?-?-?-?-?-?-?-?-?-?-?- -2 KW- NST with variables to wp for extended monitoring and BPP. GBS today NST FHR Rate Baby A Baseline: 130 ROS Constitutional Constitutional: Reports systems reviewed and no addt'l complaints, except as documented Eyes Eyes: Denies change in vision ENT HEENT: Reports systems reviewed and no addt'l complaints, except as documented; Denies headache(s) Cardiovascular Cardiovascular: Reports systems reviewed and no addt'l complaints, except as documented; Denies chest pain or dyspnea Respiratory/Chest Respiratory/Chest: Reports systems reviewed and no addt'l complaints, except as documented Gastrointestinal Gastrointestinal: Reports systems reviewed and no addt'l complaints, except as documented; Denies abdominal pain Genitourinary Genitourinary: Reports systems reviewed and no addt'l complaints, except as documented, contractions Details: present (irregular) and movement Details: present; Denies dysuria or genital lesions Musculoskeletal Musculoskeletal: Reports systems reviewed and no addt'l complaints, except as documented Neurologic Neurologic: Reports systems reviewed and no addt'l complaints, except as documented Endocrine Endocrinology: Reports systems reviewed and no addt'l complaints, except as documented Vital Signs Vital Signs Vital Signs: 01/03/24 05:16 01/03/24 05:16 01/03/24 05:16 Temperature Temperature Source Pulse Rate 94 Respiratory Rate Blood Pressure 141/89 H Blood Pressure Mean BP Systolic 141 BP Diastolic 89 Blood Pressure Source Blood Pressure Position Blood Pressure Location Pulse Ox 97 Oxygen Delivery Method 01/03/24 05:16 01/03/24 05:16 01/03/24 05:16 Temperature Temperature Source Temporal Pulse Rate 97 Respiratory Rate 20 H Blood Pressure Blood Pressure Mean BP Systolic BP Diastolic Blood Pressure Source Blood Pressure Position Blood Pressure Location Pulse Ox Oxygen Delivery Method 01/03/24 05:16 01/03/24 05:16 Temperature 98.4 F 98.4 F Temperature Source Temporal Pulse Rate 101 H Respiratory Rate 20 H Blood Pressure 141/89 H Blood Pressure Mean 106 BP Systolic BP Diastolic Blood Pressure Source Monitor Blood Pressure Position Semi-Fowlers Blood Pressure Location Right Arm Pulse Ox 98 Oxygen Delivery Method Room Air Weight Weight: 233 lb Body Mass Index (BMI) 38.7 Physical Exam Const alert, oriented x3, no apparent distress and healthy appearing HEENT normocephalic and moist oral mucous membranes Head and Scalp: atraumatic Neck full ROM, no lymphadenopathy, supple and thyroid normal General: trachea midline Lymph Lymphatic: no lymphadenopathy noted Chest inspection of chest normal Resp normal respiratory effort Cardio regular rate GI normal to inspection, nondistended, normoactive bowel sounds, soft to palpation and non-tender Inspection: gravid external exam normal Manual OB Exam: estimated gestational size appropriate, presentation cephalic, dilated, effaced and station Extremity normal to inspection General Extremity: Negative for edema Skin no rashes or lesions noted Neuro no focal motor deficits and deep tendon reflexes 2+ bilaterally Motor Exam: strength 5/5 throughout and clonus absent Psych mental status grossly normal Labs Labs Labs: Blood Type O POSITIVE Antibody Screen NEGATIVE Hct 33.6 % (37-47) L Hgb 10.9 g/dL (12.0-15.0) L Obstetrics Ultrasound Syphilis Total Ab Non-reactive Rubella IgG Antibody Reactive (Nonreactive) Hep Bs Antigen Non-Reactive (Nonreactive) Hepatitis C Antibody Non-Reactive (Nonreactive) Chlamydia DNA (LOLY) Negative (Negative) N.gonorrhoeae DNA (LOLY) Negative (Negative) HIV 1&2 Antibody Non-Reactive (Nonreactive) Glucose 1 Hr 50 gm 141 mg/dL (70-140) H Gest Glucose Tolerance MG/DL Assessment & Plan (1) delivery delivered: COMMENT: SM RLTCS girl Hayslee gdm chtn (2) Abnormal ultrasound: COMMENT: repeat echo ordered 11/21- 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 echo in 2 weeks with ped cardiology (has week of 11/27) genetic counseling- will obtain screenings with [facility] [place] Normal ductal arch (3) Anxiety: COMMENT: tried meds previously and didn't like side effects. Will consider. 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 (4) Asthma: COMMENT: remote history, resolved with quitting smoking (5) Gestational diabetes: QUALIFIERS: Gestational diabetes mellitus control: unspecified Trimester: third trimester Qualified Code(s): O24.419 - Gestational diabetes mellitus in , unspecified control COMMENT: start NPH at night. Now at 16U BS fasting & 2hr pp, nutrition consult. All FBS>100 but checking just few days. Dietitian this week. SM in 1 wk. Discu ssed insulin-used with first (6) Hx of section: COMMENT: x 2, failure to progress, RLTCS scheduled for 01/02 @ 7:15 with SM (7) Hypertension: QUALIFIERS: Hypertension type: primary hypertension Qualified Code(s): I10 - Essential (primary) hypertension COMMENT: after 32 weeks, plan weekly bpp and weekly nst- 2x weekly testing, delivery 38 weeks. (8) : QUALIFIERS: Weeks of gestation: 37 weeks Qualified Code(s): Z3A.37 - 37 weeks gestation of COMMENT: GBS neg, genetic and carrier- . anatomy reveiwed. (9) Supervision of high risk , antepartum: COMMENT: PRR JEREMY 01/16/24 July Darby - Islam (10) Tachycardia: COMMENT: s/p cardio consult, on 25 labetalol 2-3x daily, s/p holter and echo. discussed starting FMLA if needed PLAN: Plan plan for RLTCS
--- NOTE | 2024-01-03 08:37 | OP.PCM_ITS ---
Assessment & Plan (1) Anxiety: COMMENT: tried meds previously and didn't like side effects. Will consider. 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 (2) Gestational diabetes: QUALIFIERS: Gestational diabetes mellitus control: unspecified Trimester: third trimester Qualified Code(s): O24.419 - Gestational diabetes mellitus in , unspecified control COMMENT: start NPH at night. Now at 16U BS fasting & 2hr pp, nutrition consult. All FBS>100 but checking just few days. Dietitian this week. SM in 1 wk. 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 echo in 2 weeks with ped cardiology (has week of 11/27) genetic counseling- will obtain screenings with [facility] Normal ductal arch (4) Chronic sinusitis: COMMENT: Saw ENT. Allergy testing done/will not start injections until after delivery. They will manage w antibiotics prn. (5) Hypertension: QUALIFIERS: Hypertension type: primary hypertension Qualified Code(s): I10 - Essential (primary) hypertension COMMENT: after 32 weeks, plan weekly bpp and weekly nst- 2x weekly testing, delivery 38 weeks. (6) Supervision of high risk , antepartum: COMMENT: PRR JEREMY 01/16/24 July Darby - Baptism (7) : QUALIFIERS: Weeks of gestation: 37 weeks Qualified Code(s): Z3A.37 - 37 weeks gestation of COMMENT: GBS neg, genetic and carrier- . anatomy reveiwed. (8) Hx of section: COMMENT: x 2, failure to progress, RLTCS scheduled for 01/02 @ 7:15 with (9) delivery delivered: COMMENT: RLTCS girl Hayjennifere gdm chtn Maternal Data Information JEREMY Calculator Estimated Delivery Date Method Current WG Current Estimate 01/16/24 LMP (Certain) 38w 2d Other Estimates 01/14/24 Ultrasound #1 38w 4d Final JEREMY Source: LMP Details Operative Information Date of Procedure: 01/03/24 Pre-Operative Diagnosis: Previous Post-Operative Diagnosis: same Indications for : Repeat Elective Indications Narrative: Surgeon: Carolyn Agrawal MD Classification: Scheduled Procedure Type: low transverse package maker #1: Simón Sow Type of Anesthesia: Spinal Special Medications: none Antibiotic Given: Ancef 2 grams IV x1 Drain: العراقي to straight drain Estimated Blood Loss: 600 Fluids Replaced: crystalloid Procedure Start Time: 07:19 Procedure Stop Time: 08:11 Findings Description of Procedure: Spinal anesthesia was placed without difficulty. العراقي catheter was placed. The patient was placed in the dorsal supine position with leftward tilt. Patient was prepped and draped in the normal sterile fashion. Pfannenstiel skin incision was made with the scalpel and carried through to the underlying layer of fascia with the scalpel. Fascia was nicked in the midline and the incision extended laterally. The rectus bellies were dissected off superiorly and inferiorly with out complication both sharply and bluntly. The peritoneum was entered digitally. The incision was stretched and a low transverse uterine incision was made with the scalpel. The 's head was delivered atraumatically noting a funic presentation during delivery, followed by the anterior and posterior shoulders without complication the rest of the delivered. The cord was clamped and cut and the was handed off to awaiting nurse. The placenta was delivered spontaneously immediately following and was noted to be intact and have a three-vessel cord. The uterus was exteriorized cleared of all clots and debris, and the incision was closed in a single layer closure using #1 Monocryl. The ovaries and fallopian tubes were noted to be within normal limits. The uterus was returned to the maternal abdomen and gutters were cleared of all clots and debris. floseal used on the incision for hemostasis. The peritoneum was closed with 3-0 Monocryl in a running fashion. Fascia was closed with 0 PDS in a running fashion. Subcutaneous tissue was copiously irrigated and the skin was closed with 3-0 Monocryl in a subcuticular fashion. Mepilex dressing was applied without complication. Patient was taken to recovery in stable condition. It was discussed with the patient that based on the clinical information obtained during this encounter, combined with her history, at this time I would recommend cesareans for future deliveries if further pregnancies are desired. Amniotic Membrane Rupture Type: Artificial Amniotic Fluid Description: Clear Placenta Disposition: [facility] Cord Vessel Description: 3 Vessels Delayed Cord Clamping: Yes Complications Risks of Surgery Discussed w/Patient: Bleeding, Infection, Need for Future C- Sections and Injury to surrounding structure(s) including bowel and bladder Vaginal Delivery Complication Complications: None Admit VTE Documentation VTE Present on Admission: No VTE Mechan Device Prophylaxis: SCD's Procedures Urinary/Genital [id number]: [id number] [facility]
[2024-01-03] MEDS: Ketorolac 30 MG/ML Syringe IV ×3 (08:54→20:49)
[2024-01-03 10:16] LABS: Bedside Glucose 102 mg/dL (74-106)
[2024-01-03] MEDS: DiphenhydrAMINE 25 MG Capsule PO ×2 (10:26→17:17)
[2024-01-03] MEDS: Lactated Ringers 1,000 ML 100 ML IV (11:51)
[2024-01-03 12:37] LABS: Syphilis Antibodies Non-reactive
--- NOTE | 2024-01-03 12:47 | NURSING ---
Delaney held d/t BP 123/78 and pt request.
[2024-01-03] MEDS: 0.9% Saline Lock 10 ML Syringe IV ×2 (14:29→20:50)
--- NOTE | 2024-01-03 18:56 | NURSING ---
rodriguez cath still in place per pt request; she states she was unable to void with previous c/s when cath was taken out at 8 hours.
[2024-01-03] MEDS: Enoxaparin 40 MG/0.4 ML Syringe SC (20:49)
[2024-01-03] MEDS: Senna/Docusate Sodium 1 Tablet PO (22:12)
[2024-01-04] VITALS: BP 124/82; PULSE 82; RESP 16; TEMP 36.3; O2SAT 99
[2024-01-04] MEDS: Acetaminophen 500 MG Tablet 1000 MG PO ×4 (00:01→18:02)
[2024-01-04] MEDS: Ketorolac 30 MG/ML Syringe IV (03:17)
[2024-01-04] MEDS: 0.9% Saline Lock 10 ML Syringe IV (03:17)
[2024-01-04 03:20] VITALS: BP 122/70; PULSE 68; RESP 16; TEMP 36.2; O2SAT 95
--- NOTE | 2024-01-04 05:57 | PCM.DC ---
Discharge Instructions Diet Discharge Diet: No restrictions Activity Discharge Activity: May Not Drive (for 2 weeks or while taking narcotic pain medications.), May Shower and May Take a Tub Bath (in 7 days) May shower in (days): 0 May resume sexual activity in: 4-6 weeks Weight Bearing Status: Full weight bearing Lifting Restrictions: 20 pounds Dressing / Incision Call your doctor if your incision/area has: Continuous Slow Oozing, Sudden Increased Bleeding, Increased Pain/ Swelling, Increased Redness and Foul Smelling Discharge Call your doctor if you observe: Fever of 101 or Higher and Using more than 1 pad per hour (for 2 hours) Suture Line Care: Avoid Pulling/Pushing and Avoid Pinching/Bending Cleanse incision/area with: Soap & Water and Keep Dressing Clean & Dry Follow Up Care Please Follow Up With: Carolyn Agrawal MD When: Call [phone] to make an appointment for an incision check in 1-2 weeks. Test Results: Test results from this visit will be discussed in further detail at your follow-up appointment, if applicable. Discharge Plan Admission Admit Date/Time: 01/03/24 05:05 Attending Provider: Isabel Cleaning Primary Care Provider: Care PhysicianAlfreda Primary Discharge Orders/Prescriptions Prescriptions: New oxycodone-acetaminophen [Percocet] 5-325 mg tablet 1 tab PO Q6H PRN (Reason: pain) 7 Days Qty: 20 0RF naproxen 500 mg tablet 500 mg PO BID PRN PRN (Reason: Pain) Qty: 30 1RF No Action famotidine [Pepcid] 20 mg tablet 20 mg PO DAILY PNV-[place] 28-1-300 mg capsule 1 cap PO DAILY PRN (Reason: ) labetalol 100 mg tablet 100 mg PO BID 90 Days Qty: 180 4RF ondansetron HCl 4 mg tablet 4 mg PO Q8H Qty: 30 3RF aspirin [Adult Low Dose Aspirin] 81 mg tablet,delayed release (DR/EC) 81 mg PO DAILY Humulin N NPH Insulin KwikPen 100 unit/mL (3 mL) insulin pen 18 unit subcut QHS Rx Instructions: increase by 2 U nightly if fasting sugar over 95 (DME) Blood Glucose Test Strip See Rx Instructions .MEDSUPPLY Qty: 120 5RF Rx Instructions: As directed-fasting & 2 hr post meals (DME) blood-glucose meter Misc See Rx Instructions .MEDSUPPLY Qty: 1 0RF Rx Instructions: As directed- Test fasting and 2 hours after meals (DME) lancets Misc See Rx Instructions .MEDSUPPLY Qty: 200 5RF Rx Instructions: As directed-fasting & 2 hr post meals Referrals / Follow Up: Care Physician,No Primary [Primary Care Provider] - Disposition Disposition (needs filled in before D/C Order can be placed): Home, Self Care
[2024-01-04 06:23] LABS: Hematocrit 28.5 % (37-47); Hemoglobin 9.3 g/dL (12.0-15.0); Mean Corp Hgb Conc 32.6 g/dL (32-36); Mean Corpuscular Volume 85.8 fL (81-99); Mean Platelet Vol. 10.7 fl (6.2-12.0); Platelet Count 165 K/mm3 (150-450); RBC Distribution Width CV 13.6 % (11.6-14.6); RBC Distribution Width SD 42.2 fl (35.1-43.9); Red Blood Count 3.32 M/mm3 (4.2-5.4); White Blood Count 10.3 K/mm3 (4.4-11.0)
[2024-01-04 06:36] LABS: Bedside Glucose 92 mg/dL (74-106)
[2024-01-04 07:42] VITALS: BP 122/69; PULSE 74; RESP 16; TEMP 36.2; O2SAT 98
--- NOTE | 2024-01-04 08:12 | PN.OBGYN_ITS ---
Subjective Subjective Patient doing well without complaints. Tolerating PO. Ambulating and voiding without difficulty. Feeding well. Denies chest pain, shortness of breath, calf pain/swelling, fevers, chills, lightheadedness. Objective Data Objective Data Vital Signs: Vital Signs Temp Pulse Resp BP Pulse Ox O2 Del Method 97.1 F L 74 16 122/69 H 98 Room Air 01/04/24 07:42 01/04/24 07:42 01/04/24 07:42 01/04/24 07:42 01/04/24 07:42 01/04/24 07:42 Oxygen Delivery Method Room Air Weight: 233 lb Body Mass Index (BMI) 38.7 Intake & Output: Intake and Output for Last 24 Hours 01/02/24 01/03/24 01/04/24 23:59 23:59 23:59 Intake Total 2360 / 2360 Output Total 1100 / 1100 650 / 650 Balance 1260 / 1260 -650 / -650 Lab / Micro Data 01/04/24 06:17 Labs: Laboratory Results - last 24 hr 01/03/24 05:20: Syphilis Total Ab Non-reactive 01/03/24 09:45: POC Glucose 102 01/04/24 06:15: POC Glucose 92 01/04/24 06:17: WBC 10.3, RBC 3.32 L, Hgb 9.3 L, Hct 28.5 L, MCV 85.8, MCH 28.0, MCHC 32.6, RDW Std Deviation 42.2, RDW Coeff of Oliver 13.6, Plt Count 165, MPV 10.7 Physical Exam Const alert and oriented x3 General Appearance: cooperative HEENT normocephalic Eyes PERRL Neck full ROM Resp normal respiratory effort GI soft to palpation GI Narrative: FF below U. Dressing dry and intact Palpation: tender other (appropriately) Assessment & Plan (1) delivery delivered: COMMENT: SM RLTCS girl Hayslee gdm chtn (2) Chronic hypertension: COMMENT: stable pp on labetelol (3) Gestational diabetes: QUALIFIERS: Gestational diabetes mellitus control: unspecified T rimester: third trimester Qualified Code(s): O24.419 - Gestational diabetes mellitus in , unspecified control COMMENT: stable PLAN: Plan s/p LTCS PPD # 1 1. routine post care 2. breast feeding- support given 3. rh positive 4. rubella immune 5. home today
[2024-01-04] MEDS: Naproxen 500 MG Tablet PO ×2 (09:01→16:57)
[2024-01-04 10:38] VITALS: BP 124/71; PULSE 92; RESP 16; O2SAT 99
[2024-01-04] MEDS: Senna/Docusate Sodium 1 Tablet PO (10:52)
[2024-01-04] MEDS: Labetalol 100 MG Tablet PO ×2 (10:52→21:43)
[2024-01-04] MEDS: SimETHICONE 80 MG Chewable Tablet PO ×2 (10:52→21:43)
--- NOTE | 2024-01-04 11:13 | CASEMGMT ---
Social Work Assessment Labor and Delivery Unit Patient Address: Phone number: Date of Referral: Time of Referral:? Referred By: Date of Intervention: ?? Time of Intervention:? Reason for Referral:? History obtained from: medical records, MOB and FOB Household composition: Patient's parent/guardian status:? ? Medical History: ? Educational Status:? Financial Status: Infant Supplies:?? Childcare/Caregiver(s):? Transportation:?? Programs/Agencies Involved: ??? Children Services/Legal Issues:??? Behavioral Health Issues: ??Mental Health History:??? Substance Use History:?? Family History:? Drug Screens: ?? Family/Social Stressors:? Support Systems: Depression/Shaken Baby/Safe Sleeping:? ASSESSMENT:? Safe Plan of Care for related to substance use:? PLAN:? ?No other services requested or indicated.
--- NOTE | 2024-01-04 11:14 | CASEMGMT ---
Social Work Assessment Labor and Delivery Unit Patient Address: [facility] [place] [address] [place] [address] Phone number: [phone] Date of Referral: 01/03/24 Time of Referral:? 1543 Referred By: Isabel Restrepo Date of Intervention: 01/04/24?? Time of Intervention:? 944 Reason for Referral:? depression, anxiety Sw completed chart review and acknowledges social work consult due to maternal mental health history. Sw presented to bedside and introduced self to mother of baby (YARELY- Rebecca) and father of baby (MONTSERRAT- Presybeterian). Sw explained reason for sw involvement and completed psychosocial assessment. History obtained from: medical records, MOB and FOB Household composition: Currently residing in the family home is MONTSERRAT PRITCHETT, their two older children: Donavan (3) and César (2) and baby when ready for discharge. Parents deny any issues or concerns with their housing at this time. Patient's parent/guardian status:? ?Parents report that they have been together for 5 years after meeting on an online dating eli. No concerns reported of domestic violence or intimate partner violence. Medical History: ?YARELY is 28 year old female who is 3, para 2- now 3 following delivery of . YARELY received routine care during with [facility]. YARELY presented to hospital for scheduled repeat on 01/03/24. Baby girl, named Jenniffer Cruz, was born weighing 6lb 15 oz with apgars of 8 and 9 at one and five minutes of life respectfully. YARELY states that she is breast feeding and has exclusively pumped with her other babies. Baby will be followed by Dr. Villar for pediatrics. Educational Status:? Both parents graduated from high school, YARELY obtained her bachelors degree in nursing. Financial Status: Both parents are gainfully employed. 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 Infant Supplies:?? Parents have obtained all necessary baby supplies, including: car seat, safe sleep space, clothes, diapers and wipes. Childcare/Caregiver(s):?Parents report that when they have both returned to work they have an coating mixer supervisor that they use. Transportation:?? Both parents have their drivers license and reliable means of transportation. No barriers at this time. Programs/Agencies Involved: ?Parents deny linkage to any community agencies that provide them with financial assistance. Parents are not connected to any mental health services providers. Children Services/Legal Issues:??? No history of involvement, no issues or concerns warranting referral to be made at this time. Behavioral Health Issues: ??Mental Health History:??MONTSERRAT denies mental health history. YARELY states that she has been diagnosed with anxiety, depression and has experienced depression following the last two deliveries she has had. MOB states that she has felt overwhelmed, has had lack of a collier with her second baby, and after her first baby did experience thoughts of my family would be better off without her. MOB states that she feels good at this time, although last night she felt emotional, but in a good way. MOB states that she anticipates experiencing some type of change in her mental status during this period. MOB states that she has tried pharmacological medication to help in the past, but she did not like how it made her feel numb. MOB states that to help her mental health status she talks to FOB and engages in healthy coping skills such as spending time outside, etc. FOB states that he would be able to recognize if MOB were struggling and he would know how to help and support her. ? Substance Use History: Parents deny substance use prior to or during . ?? Family History:??MONTSERRAT states that his father has history of alcoholism, but is in recovery.??? Drug Screens: ??No urine screens observed in chart review. Family/Social Stressors:? YARELY states that their second baby had extreme colic, and was extremely fussy from the time he was 2/3 months old to about a year. MOB states that she is anxious that they will experience the same issues with this baby. YARELY reports that she and FOHoang are a good support system and have learned how to tag each other when they need help. MOB states that neither of them have family that live close by so that is also a stressor because they do not get a reprieve. Support Systems: MOB and FOB state that the other parent is the biggest support to the other. MOB states that her family is also supportive, but they live in [place]. Depression/Shaken Baby/Safe Sleeping:? Sw spoke at length with parents regarding signs and symptoms of baby blues and depression and anxiety. Both parents state that they are familiar with the common symptoms to be on the lookout for, and because they have gone through this experience two other times, they feel that they know how to help and support each other. Sw encouraged MOB to tell FOB specific things he can do to help her, because FOB states that he is not a director of institutional research and does not feel confident knowing how best to help MOB when he can tell that she is frustrated. MOB was receptive to that recommendation, but stated that she does not always know what she needs, and does not always know how to ask for help. Sw also educated parents on shaken baby prevention and ABCs of safe sleep. Parents express understanding. ASSESSMENT:? MOB and baby admitted following labor and delivery. MOB required repeat . Parents asking appropriate questions about correlation between having a and experiencing depression. Parents have obtained all necessary items for baby. Parents observed to provide loving and appropriate hands on care to . Parents ask appropriate questions and state that they know how to help and support each other during this period. MOB is not receptive to medication to help with symptoms, but states that she will review the list of resources that sw provided her with and will get connected to a mental health professional if she feels that she is strugging. Sw also encoruaged MOB to stay in close contact with her OBGYN who will also be supportive during this period. PLAN:? MOB and baby admitted following labor and delivery and to be discharged when medically ready. ?No other services requested or indicated. Christoph Fowler, INTERNAL AUDIT SENIOR MANAGER, [employer]
[2024-01-04] MEDS: oxyCODONE 5 MG Tablet PO ×3 (12:11→21:42)
[2024-01-04 13:18] VITALS: BP 110/67; PULSE 93; RESP 16; TEMP 35.8; O2SAT 98
[2024-01-04 20:37] VITALS: BP 118/64; PULSE 75; RESP 16; TEMP 36.1; O2SAT 98
[2024-01-04] MEDS: Enoxaparin 40 MG/0.4 ML Syringe SC (21:43)
[2024-01-05] MEDS: Naproxen 500 MG Tablet PO ×2 (00:18→08:53)
[2024-01-05] MEDS: Acetaminophen 500 MG Tablet 1000 MG PO ×2 (00:18→06:14)
[2024-01-05 02:55] VITALS: BP 114/65; PULSE 84; RESP 16; TEMP 36.7; O2SAT 99
[2024-01-05] MEDS: oxyCODONE 5 MG Tablet PO ×2 (03:11→08:52)
[2024-01-05] MEDS: SimETHICONE 80 MG Chewable Tablet PO (06:14)
[2024-01-05 08:51] VITALS: BP 126/65; PULSE 81; RESP 14; TEMP 36.3; O2SAT 100
[2024-01-05] MEDS: Senna/Docusate Sodium 1 Tablet PO (08:53)
--- NOTE | 2024-01-05 09:38 | PCM.PN.OB ---
Subjective Subjective Patient doing well without complaints. Tolerating PO. Ambulating and voiding without difficulty. feeding well. Denies chest pain, shortness of breath, calf pain/swelling, fevers, chills, lightheadedness. Objective Data Objective Data Vital Signs: Vital Signs Temp Pulse Resp BP Pulse Ox O2 Del Method 97.4 F L 81 14 126/65 H 100 Room Air 01/05/24 08:51 01/05/24 08:51 01/05/24 08:51 01/05/24 08:51 01/05/24 08:51 01/05/24 08:51 Oxygen Delivery Method Room Air Weight: 233 lb Body Mass Index (BMI) 38.7 Intake & Output: Intake and Output for Last 24 Hours 01/03/24 01/04/24 01/05/24 23:59 23:59 23:59 Intake Total 2360 / 2360 Output Total 1100 / 1100 850 / 850 Balance 1260 / 1260 -850 / -850 Lab / Micro Data 01/04/24 06:17 ROS Constitutional Constitutional: Reports systems reviewed and no addt'l complaints, except as documented Cardiovascular Cardiovascular: Reports systems reviewed and no addt'l complaints, except as documented Respiratory/Chest Respiratory/Chest: Reports systems reviewed and no addt'l complaints, except as documented Gastrointestinal Gastrointestinal: Reports systems reviewed and no addt'l complaints, except as documented Physical Exam Const alert, oriented x3 and no apparent distress HEENT Head and Scalp: atraumatic Resp normal respiratory effort GI soft to palpation and non-tender Inspection: incision intact, healing well and drainage (none) Bimanual Exam - Vag & Uterus: uterus non-tender Uterus Palpation: uterus fundus firm (below Umbilicus) Assessment & Plan (1) delivery delivered: COMMENT: RLTCS girl Haijaylinlee gdm chtn (2) Chronic hypertension: COMMENT: stable pp on labetelol (3) History of depression: PLAN: Plan .s/p LTCS PPD # 2 1. routine post care 2. breast feeding- support given 3. rh positive 4. rubella immune
--- NOTE | 2024-01-06 15:32 | NURSING ---
01/06/24: Pt. here today for a visit. going well. Pt. reports she is still having difficulty and pain with voiding, and that her urine has a strong odor. Pt. reports getting an UTI after her last . Denies burning with urinating, but states it's a pain where sometimes she feels like she has to brace herself to urinate and it's hard to get started with urination. Pt. reports she told healthcare team of these symptoms before discharge, but that they weren't concerned since it was just 2 days since delivery. After visit, with pt's permission, IBCLC called [facility] nurse to report pt's symptoms, so that OBGYN or [facility] nurse can reach out to pt as needed.
== END 2024-01-05 11:55 | disposition home or self-care (01) | DRG 787 ==
PROVIDERS: Obstetrics & Gynecology; Admitting Provider Obstetrics & Gynecology; Referring Provider Obstetrics & Gynecology; Visit Provider Obstetrics & Gynecology
PROC: 10D00Z1 Extraction of Products of Conception, Low, Open Approach (ICD-10-PCS; CPT 59514; principal; 2024-01-03 07:00)
DX: O34.211 Maternal care for low transverse scar from previous cesarean delivery (principal); O10.02 Pre-existing essential hypertension complicating childbirth; F41.9 Anxiety disorder, unspecified; J32.9 Chronic sinusitis, unspecified; O24.424 Gestational diabetes mellitus in childbirth, insulin controlled; O99.214 Obesity complicating childbirth; O99.52 Diseases of the respiratory system complicating childbirth; O99.344 Other mental disorders complicating childbirth; O99.892 Other specified diseases and conditions complicating childbirth; R00.0 Tachycardia, unspecified; Z37.0 Single live birth; Z3A.38 38 weeks gestation of pregnancy; Z79.82 Long term (current) use of aspirin; Z79.899 Other long term (current) drug therapy; Z87.59 Personal history of other complications of pregnancy, childbirth and the puerperium; Z87.891 Personal history of nicotine dependence
CPT/HCPCS: 59025; 59050; 82962; 85025; 85027; 86780; 86850; 86900; 86901; 99221; J7120; A4216; G0378; J2405

== ENCOUNTER → 2024-01-07 | Outpatient (CLI) | payer OTHER, SELFPAY ==
[2024-01-07 11:33] LABS: Bacteria 0 SEEN /hpf (None Seen); Mucous, Urine 0 SEEN /hpf (<or=2+)
[2024-01-07 12:06] LABS: Color, Urine Yellow (Yellow); Glucose, Dipstick Normal (Normal); Ketone-Dipstick Negative (Negative); Leukocyte Esterase-Dipstick 25 /ul (Negative); Nitrite-Dipstick Negative (Negative); Occult Blood-Urine 250 /ul (Negative); Protein-Dipstick 15 mg/dl (Negative); Urine Bilirubin Dipstick Negative (Negative); Urine Clarity Clear (Clear); Urine Urobilinogen Normal (Normal)
[2024-01-07 12:42] LABS: Red Blood Cells-Urine 5-10 SEEN /hpf (0-5); Squamous Epithelial Cells - UA 5-10 SEEN /hpf (5-10); White Blood Cells 0-5 SEEN /hpf (0-5)
== END | disposition home or self-care (01) ==
LOC: LAB 11:31
PROVIDERS: Referring Provider Obstetrics & Gynecology; Visit Provider Obstetrics & Gynecology
DX: R39.9 Unspecified symptoms and signs involving the genitourinary system (principal)
CPT/HCPCS: 81001; 87086; 87088

== ENCOUNTER → 2024-01-19 | Outpatient (CLI) | payer OTHER, SELFPAY ==
[2024-01-19 14:46] LABS: Absolute Lymphocyte Count 2.19 X10^3/uL (0.83-4.51); Absolute Neutrophil Count 4.6 X10^3/uL (2.0-7.7); Basophil# 0.09 X10^3/uL; Basophil% 1.1 % (0-1); Eosinophil# 0.42 X10^3/uL; Eosinophils% 5.3 % (0-5); Hematocrit 35.3 % (37-47); Hemoglobin 11.2 g/dL (12.0-15.0); Lymphocyte # 2.19 X10^3/ul (0.83-4.51); Lymphocyte % 27.8 % (19-41); Mean Corp Hgb Conc 31.7 g/dL (32-36); Mean Corpuscular Hgb 27.5 pg (27.0-32.0); Mean Corpuscular Volume 86.5 fL (81-99); Monocyte# 0.52 X10^3/uL; Monocyte% 6.6 % (0-10); NRBC Flagged by Analyzer 0 % (0-5); Neutrophil # 4.63 X10^3/uL (2.7-7.7); Neutrophil % 58.9 % (47-70); Platelet Count 319 K/mm3 (150-450); RBC Distribution Width CV 13.1 % (11.6-14.6); RBC Distribution Width SD 40.7 fl (35.1-43.9); Red Blood Count 4.08 M/mm3 (4.2-5.4); White Blood Count 7.9 K/mm3 (4.4-11.0)
[2024-01-19 15:04] LABS: ALB/GLOB Ratio 0.9 RATIO (0.9-2.4); AST(SGOT) 18 U/L (15-37); Alanine Aminotransfer ALT/SGPT 24 U/L (13-56); Albumin, Serum 3.7 g/dL (3.2-5.0); Alkaline Phosphatase 90 U/L (45-117); Anion Gap 5 (5-15); BUN 15 mg/dL (7-18); BUN/Creat Ratio 20.6 RATIO (10-20); Calcium,Total 10.1 mg/dL (8.5-10.1); Chloride 106 mmol/L (98-107); Creatinine, Serum 0.73 mg/dL (0.55-1.02); EST Glomerular Filtration Rate 100 mL/min (>60); Est Glom Filt Rate - Afr Amer 121 mL/min (>60); Globulin 3.9 g/dL (2.2-4.2); Glucose 91 mg/dL (74-106); Potassium 3.9 mmol/L (3.5-5.1); Protein, Total 7.6 g/dL (6.4-8.2); Sodium Level 137 mmol/L (136-145)
[2024-01-19 15:23] LABS: Bacteria 0 SEEN /hpf (None Seen); Mucous, Urine 0 SEEN /hpf (<or=2+)
[2024-01-19 15:39] LABS: Color, Urine Yellow (Yellow); Glucose, Dipstick Normal (Normal); Ketone-Dipstick Negative (Negative); Leukocyte Esterase-Dipstick 25 /ul (Negative); Nitrite-Dipstick Negative (Negative); Occult Blood-Urine 250 /ul (Negative); Protein-Dipstick Negative (Negative); Specific Gravity, Urine 1.015 (1.002-1.030); Urine Bilirubin Dipstick Negative (Negative); Urine Urobilinogen Normal (Normal)
[2024-01-19 15:46] LABS: White Blood Cells 0-5 SEEN /hpf (0-5)
[2024-01-19 15:47] LABS: Red Blood Cells-Urine 10-25 SEEN /hpf (0-5); Squamous Epithelial Cells - UA 0-5 SEEN /hpf (5-10); Urine Clarity Sl Cldy (Clear)
[2024-01-19 16:01] LABS: Protein, Urine (Random) 16.9 mg/dL (<11.9); Protein:Creat Ratio 117 mg/g CRE (0-200)
== END | disposition home or self-care (01) ==
PROVIDERS: Referring Provider Nurse Practitioner Family; Visit Provider Nurse Practitioner Family
DX: R30.0 Dysuria (principal); I10 Essential (primary) hypertension
CPT/HCPCS: 36415; 80053; 81001; 82570; 84156; 85025; 87086; 87088

== ENCOUNTER → 2024-02-14 | Outpatient (CLI) | payer OTHER, SELFPAY ==
[2024-02-16 23:06] LABS: HPV Reflexed? NOT INDICATED
== END | disposition home or self-care (01) ==
LOC: LABSPEC 11:59
PROVIDERS: Referring Provider Nurse Practitioner Women's Health; Visit Provider Nurse Practitioner Women's Health
DX: Z12.4 Encounter for screening for malignant neoplasm of cervix (principal)
CPT/HCPCS: 88175; G0145